=== PATIENT | female | born 1995 | race Asian ===

== ENCOUNTER 2016-09-22 11:20 | Inpatient (IN) | payer SELFPAY ==
[~2016-09-22] VITALS: Ht 157.5 cm; Wt 59.9 kg
[2016-09-22] VITALS (7 sets, daily range): BP systolic 95–132; BP diastolic 49–82
[~2016-09-22 11:20] MED LIST: HYDR-971 PO; IBUP-1060 PO; NAPR500T PO; OXYC-323 PO
[2016-09-22] MEDS ORDERED: OXYTOCIN 30 UNIT/500 ML PREMIX 500 ML IV PRN ×2 (11:45→13:45)
[2016-09-22] MEDS ORDERED: BUTORPHANOL 2 MG/ML VIAL. IV PRN (11:45)
[2016-09-22] MEDS ORDERED: 0.9 % SODIUM CHLORIDE 10 ML DISP.SYRIN. IV PRN ×2 (11:45→13:45)
[2016-09-22] MEDS ORDERED: TERBUTALINE 1 MG/ML VIAL. SQ PRN (11:45)
[2016-09-22] MEDS ORDERED: LIDOCAINE 1% PF 30 ML VIAL. INJ PRN (11:45)
[2016-09-22] MEDS ORDERED: fentaNYL PF VIAL 100 MCG/2 ML VIAL IV PRN (11:45)
[2016-09-22] MEDS ORDERED: IV NORMAL SALINE 1000ML BAG 1,000 ML IV SCH (12:26)
[2016-09-22] MEDS ORDERED: SUCCINYLCHOLINE 200 MG/10 ML VIAL. ONE (12:30)
[2016-09-22] MEDS ORDERED: PROPOFOL 20 ML IV ONE (12:31)
[2016-09-22 12:42] LABS: HEMATOCRIT 25.5 % (36.0-47.0); HEMOGLOBIN 8.2 g/dL (12.0-15.5); RED BLOOD COUNT 3.82 x10^6/uL (3.50-5.40); RED CELL DISTRIBUTION WIDTH 16.5 % (11.5-14.5); WHITE BLOOD COUNT 7.6 x10^3/uL (4.0-11.0)
[2016-09-22] MEDS ORDERED: OXYTOCIN 10 UNIT/ML VIAL. ONE ×2 (12:42→13:08)
[2016-09-22] MEDS ORDERED: ONDANSETRON PF 4 MG/2 ML VIAL. ONE (12:43)
[2016-09-22] MEDS ORDERED: fentaNYL PF VIAL 100 MCG/2 ML VIAL ONE ×2 (12:44→13:03)
[2016-09-22] MEDS ORDERED: METHYLERGONOVINE MALEATE 0.2 MG/ML VIAL. IM ONE ×2 (12:48→13:00)
[2016-09-22] MEDS ORDERED: miSOPROStol 200MCG TAB 200 MCG TABLET ONE ×2 (12:48→13:00)
--- NOTE | 2016-09-22 13:06 | RAD ---
Indication low heart tones. Obstetrical ultrasound examination was performed. A full survey was not performed. No prior ultrasound imaging is available associated with this .Dr. Carrillo was present during the examination and aware of the results of the exam. There is a single viable intrauterine fetus. heart rate of 108 is documented. The placenta is predominantly right lateral. The biparietal diameter of 9.8 cm, head circumference of 34 cm, abdominal circumference of 28.4 cm and femoral length of 6.2 cm are compatible with a gestational age of approximately 31 weeks 6 days. Estimated weight was approximately 2200 g. A full survey was not performed however hydrocephalus was seen during the examination. abdominal ascites was also noted during the exam. The amount of amniotic fluid appeared normal. There was a 4 chambered heart. IMPRESSION: Single viable intrauterine fetus of approximately 32 weeks gestation. hydrocephalus and abdominal ascites
--- NOTE | 2016-09-22 13:27 | PDOC1 ---
OB - History Hx of Present Care: None Ultrasounds: No ultrasounds Abnormal Ultrasound Findings: Today's sono: EGA 35 wks Hydrocephalus Edema around abdomen FHT's 108 Obstetrical Complications: Other ( anomalies) Medical Complications: None Past Family/Social History * Past Medical, Surgical, Family and Obstetric Histories reviewed from chart. Blood Type: Unknown Rubella: Unknown RPR/VDRL: Unknown GBS Status: Unknown HBsAG: Unknown OB - Chief Complaint & HPI Date of Admission: Date of Admission: Sep 22, 2016 at 11:20 Chief Complaint/History : 2 Para: 1 EGA: 29 Reason for admission: other ( bradycardia in clinic) Admission Nurse Assessment Rev: Yes Problems: OB - Admission Exam Physical Exam HEENT: Normal Heart: Regular Rate Lungs: Clear, Equal Abdomen: Gravid, Non tender, Soft Extremities: Edema Reflexes: Normal Cervical Dilatation: None Effacement: 25% Station: Ballotable Membranes: Intact Heart Rate: Bradycardia Accelerations: No Accelerations Decelerations: No decelerations Contractions on Admission: None Text A: 35 wks IUP by today's sono Bradycardia anomalies involving head, abd and brain P: Admit for emergency repeat c/s. RAJEEV MARIE Jr, MD Sep 22, 2016 13:27
--- NOTE | 2016-09-22 13:33 | PDOC4 ---
OB Operative Note PRE OP DIAGNOSIS: Other (Previous c/s and bradycardia) POST OP DIAGNOSIS: Other (Same) OPERATION PERFORMED: R [facility] Surgeon Dr. Carrillo Anesthesia: Gen Blood Loss 1000 ml Specimen placenta and OB Findings: Position (Vertex), Sex, (0/0), Weight, Fluid (Clear) Complications Additional Remarks pt. RJAEEV Ayon Jr, MD Sep 22, 2016 13:33
[2016-09-22] MEDS ORDERED: ONDANSETRON PF 4 MG/2 ML VIAL. IV PRN (13:45)
[2016-09-22] MEDS ORDERED: KETOROLAC TROMETHAMINE 30 MG/ML INJ. IV PRN (13:45)
[2016-09-22] MEDS ORDERED: ZOLPIDEM 5 MG TABLET. PO PRN (13:45)
[2016-09-22] MEDS ORDERED: SIMETHICONE 80 MG TAB.CHEW PO PRN (13:45)
[2016-09-22] MEDS ORDERED: MAG HYDROX/ALUMINUM HYD/SIMETH 30 ML ORAL.SUSP PO PRN (13:45)
[2016-09-22] MEDS ORDERED: diphenhydrAMINE ORAL ELIXIR 12.5 MG/5 ML ML PO PRN (13:45)
[2016-09-22] MEDS: IV RINGERS,LACTATED 1000ML 1,000 ML IV SCH (19:26)
[2016-09-23] VITALS (13 sets, daily range): BP systolic 91–107; BP diastolic 48–78
[2016-09-23] MEDS: IV RINGERS,LACTATED 1000ML 1,000 ML IV SCH (02:24)
[2016-09-23 05:35] LABS: BASO % 0 % (0-3); EOS % 1 % (0-3); LYMPH # 1.3 x10^3/uL (1.0-4.8); LYMPH % 12 % (24-48); MEAN CORPUSCULAR HEMOGLOBIN 21 pg (25-35); MEAN CORPUSCULAR HGB CONC 32 g/dL (31-37); MEAN CORPUSCULAR VOLUME 66 fL (79-100); MONO % 8 % (0-9); NEUT % 80 % (31-73); PLATELET COUNT 255 x10^3/uL (140-400); RED BLOOD COUNT 2.72 x10^6/uL (3.50-5.40); RED CELL DISTRIBUTION WIDTH 16.3 % (11.5-14.5)
[2016-09-23 05:53] LABS: HEMOGLOBIN 5.8 g/dL (12.0-15.5)
[2016-09-23 07:28] LABS: RPR REFLEX Non Reactive (Non Reactive)
--- NOTE | 2016-09-23 07:43 | OP ---
DATE OF SURGERY: PREOPERATIVE DIAGNOSES: 1. A 35-week gestation. 2. bradycardia. 3. anomalies involving head, brain, abdomen. POSTOPERATIVE DIAGNOSES: 1. A 35-week gestation. 2. bradycardia. 3. anomalies involving head, brain, abdomen. PROCEDURE: Repeat low transverse section. SURGEON: Rajeev Carrillo MD ANESTHESIA: GETA. ESTIMATED BLOOD LOSS: 1000 mL. COMPLICATIONS: ____. SUMMARY: A 20-year-old 2, para 1, presented from [facility] due to bradycardia. Upon arrival to the unit, she continued to have bradycardia. This was then confirmed with ultrasound. Ultrasound also revealed a 35-week gestation with hydrocephalus, ____, fluid on abdomen and confirming the bradycardia. This was the patient's only sonogram during the and we then proceeded emergent section. DESCRIPTION OF PROCEDURE: The patient was taken to surgery suite and placed in dorsal supine position. She was prepped with ChloraPrep and draped in a sterile fashion. After adequate anesthesia, a Pfannenstiel skin incision made with scalpel down to the fascia. Fascia was extended laterally using curved Salas scissors and superior fascia edge of the fascia was grasped with two Tania clamps and dissected free of the abdominal rectus muscles using blunt dissection along with Bovie cautery. Same process took place inferiorly. The abdominal rectus was then dissected bluntly at the midline along with the peritoneum. Juan Luis ring retractor was placed. Low transverse hysterotomy incision was made with scalpel down to the amniotic sac. Hysterotomy incision was extended laterally and superiorly digitally. With the aid of fundal pressure, the 's head was delivered in smooth atraumatic manner. With additional fundal pressure, the anterior shoulder was delivered followed by posterior and rest of the was delivered. was suctioned with bulb syringe orally and nasally, umbilical cord was clamped twice and cut. was then handed to the staff for resuscitation efforts. Three-vessel cord placenta was delivered manually. The uterus exteriorized, cleared of clot and debris with a moist lap. The hysterotomy incision was reapproximated using 1-0 Vicryl suture in running locked fashion and imbricated layer of 1-0 Vicryl suture was performed. 800 mcg Cytotec was placed intrauterine for better hemostasis. The uterus then palpated firm, fallopian tubes and ovaries appeared normal bilaterally. Posterior cul-de-sac was cleared of clot and debris with a moist lap. The uterus then returned to the abdomen. Pericolic gutters were cleared of clot and debris with a moist lap. Interceed was placed over the hysterotomy incision in an inverted T fashion. The Juan Luis ring retractor was removed. The peritoneum was reapproximated using 1-0 Vicryl suture in running fashion. Fascia was reapproximated using 0 Vicryl suture in a running fashion. Skin was reapproximated using 4-0 Vicryl suture in subcuticular manner. The patient tolerated the procedure well and was taken to recovery in stable condition; resuscitation of the infant was then performed as well. RAJEEV CARRILLO MD DR: SCARLET/leighton JOB#: [id number] / [id number]
[2016-09-23] MEDS: oxyCODONE/APAP 5/325 1 TAB TABLET PO PRN ×2 (10:15→20:02)
[2016-09-23] MEDS: FERROUS SULFATE 325 MG TABLET. PO SCH (10:15)
[2016-09-23] MEDS: DOCUSATE SODIUM 100 MG CAPSULE. PO PRN (10:15)
[2016-09-23] MEDS ORDERED: diphenhydrAMINE HCL 25 MG CAPSULE PO PRN (13:00)
[2016-09-23 13:40] LABS: ANISOCYTOSIS SLIGHT; HYPOCHROMIA MOD; MICROCYTOSIS MARKED; PLT ESTIMATE ADEQUATE (ADEQUATE); POLYCHROMASIA SLIGHT
[2016-09-23 17:56] LABS: BASO # 0.1 x10^3/uL (0.0-0.2); BASO % 1 % (0-3); EOS % 2 % (0-3); HEMATOCRIT 25.7 % (36.0-47.0); HEMOGLOBIN 8.4 g/dL (12.0-15.5); LYMPH # 1.8 x10^3/uL (1.0-4.8); LYMPH % 12 % (24-48); MEAN CORPUSCULAR HEMOGLOBIN 24 pg (25-35); MEAN CORPUSCULAR HGB CONC 33 g/dL (31-37); MEAN CORPUSCULAR VOLUME 72 fL (79-100); MONO % 7 % (0-9); NEUT % 79 % (31-73); PLATELET COUNT 255 x10^3/uL (140-400); RED BLOOD COUNT 3.58 x10^6/uL (3.50-5.40); RED CELL DISTRIBUTION WIDTH 20.9 % (11.5-14.5); WHITE BLOOD COUNT 14.8 x10^3/uL (4.0-11.0)
--- NOTE | 2016-09-23 18:01 | PDOC ---
OB Progress Note Date of Service 09/23/16 Time of Evaluation 1800 Notes PT. feeling better after blood transfusion. SHe denies VANESSA, CP, SOB or abd pain. Lab Laboratory Tests Test 09/22/16 12:00 09/22/16 15:55 09/23/16 04:15 White Blood Count 7.6 x10^3/uL (4.0-11.0) 11.0 x10^3/uL (4.0-11.0) Red Blood Count 3.82 x10^6/uL (3.50-5.40) 2.72 x10^6/uL (3.50-5.40) Hemoglobin 8.2 g/dL (12.0-15.5) 5.8 g/dL (12.0-15.5) Hematocrit 25.5 % (36.0-47.0) 18.0 % (36.0-47.0) Mean Corpuscular Volume 67 fL (79-100) 66 fL (79-100) Mean Corpuscular Hemoglobin 22 pg (25-35) 21 pg (25-35) Mean Corpuscular Hemoglobin Concent 32 g/dL (31-37) 32 g/dL (31-37) Red Cell Distribution Width 16.5 % (11.5-14.5) 16.3 % (11.5-14.5) Platelet Count 322 x10^3/uL (140-400) 255 x10^3/uL (140-400) RPR Titer Additional Testing Non reactive (Non Reactive) Kleihauer-Betke Stain 0.0000 RATIO Neutrophils (%) (Auto) 80 % (31-73) Lymphocytes (%) (Auto) 12 % (24-48) Monocytes (%) (Auto) 8 % (0-9) Eosinophils (%) (Auto) 1 % (0-3) Basophils (%) (Auto) 0 % (0-3) Neutrophils # (Auto) 8.7 x10^3uL (1.8-7.7) Lymphocytes # (Auto) 1.3 x10^3/uL (1.0-4.8) Monocytes # (Auto) 0.8 x10^3/uL (0.0-1.1) Eosinophils # (Auto) 0.1 x10^3/uL (0.0-0.7) Basophils # (Auto) 0.0 x10^3/uL (0.0-0.2) Platelet Estimate Adequate (ADEQUATE) Polychromasia Slight Hypochromasia Mod Anisocytosis Slight Microcytosis Marked Laboratory Tests Test 09/23/16 04:15 White Blood Count 11.0 x10^3/uL (4.0-11.0) Red Blood Count 2.72 x10^6/uL (3.50-5.40) Hemoglobin 5.8 g/dL (12.0-15.5) Hematocrit 18.0 % (36.0-47.0) Mean Corpuscular Volume 66 fL (79-100) Mean Corpuscular Hemoglobin 21 pg (25-35) Mean Corpuscular Hemoglobin Concent 32 g/dL (31-37) Red Cell Distribution Width 16.3 % (11.5-14.5) Platelet Count 255 x10^3/uL (140-400) Neutrophils (%) (Auto) 80 % (31-73) Lymphocytes (%) (Auto) 12 % (24-48) Monocytes (%) (Auto) 8 % (0-9) Eosinophils (%) (Auto) 1 % (0-3) Basophils (%) (Auto) 0 % (0-3) Neutrophils # (Auto) 8.7 x10^3uL (1.8-7.7) Lymphocytes # (Auto) 1.3 x10^3/uL (1.0-4.8) Monocytes # (Auto) 0.8 x10^3/uL (0.0-1.1) Eosinophils # (Auto) 0.1 x10^3/uL (0.0-0.7) Basophils # (Auto) 0.0 x10^3/uL (0.0-0.2) Platelet Estimate Adequate (ADEQUATE) Polychromasia Slight Hypochromasia Mod Anisocytosis Slight Microcytosis Marked Medications Current Medications Sodium Chloride (Normal Saline Flush) 3 ml QSHIFT PRN IV AFTER MEDS AND BLOOD DRAWS; Start 09/22/16 at 11:45; Stop 09/23/16 at 07:05; Status DC Ringer's Solution 1,000 ml @ 125 mls/hr Q8H IV Last administered on 09/23/16t 02:24; Start 09/22/16 at 12:00 Butorphanol Tartrate (Stadol) 2 mg PRN Q1HR PRN IV Severe labor pain; Start 12/29 at 11:45; Stop 09/23/16 at 07:05; Status DC Fentanyl Citrate (Fentanyl 2ml Vial) 100 mcg PRN Q30MIN PRN IV Severe pain; Start 09/22/16 at 11:45 Terbutaline Sulfate (Brethine) 0.25 mg 1X PRN PRN SQ SEE COMMENTS; Start at 11:45; Stop 09/23/16 at 07:05; Status DC Lidocaine HCl 30 ml 1X PRN PRN INJ SEE COMMENTS; Start 09/22/16 at 11:45; Stop 09/23/16 at 07:05; Status DC Oxytocin/Sodium Chloride 500 ml @ 0 mls/hr CONT PRN PRN IV Post delivery bleeding; Start 09/22/16 at 11:45 Sodium Chloride 1,000 ml @ 1,000 mls/hr Q1H IV ; Start 09/22/16 at 12:26; Stop 09/22/16 at 13:25; Status DC Cefazolin Sodium/ Dextrose 50 ml @ 100 mls/hr 1X ONCE IV ; Start 09/22/16 at 13:00; Stop 09/23/16 at 07:05; Status DC Succinylcholine Chloride (Anectine) 200 mg STK-MED ONCE .ROUTE ; Start 09/22/16 at 12:30; Stop 09/23/16 at 07:05; Status DC Propofol 20 ml @ As Directed STK-MED ONCE IV ; Start 09/22/16 at 12:31; Stop 01/28 at 07:05; Status DC Oxytocin (Pitocin) 10 unit STK-MED ONCE .ROUTE ; Start 09/22/16 at 12:42; Stop 09/22/16 at 12:43; Status DC Ondansetron HCl (Zofran) 4 mg STK-MED ONCE .ROUTE ; Start 09/22/16 at 12:43; Stop 09/23/16 at 07:05; Status DC Misoprostol (Cytotec 200mcg Tab) 200 mcg STK-MED ONCE .ROUTE ; Start 09/22/16 at 12:48; Stop 09/23/16 at 07:05; Status DC Fentanyl Citrate (Fentanyl 2ml Vial) 100 mcg STK-MED ONCE .ROUTE ; Start at 12:44; Stop 09/23/16 at 07:05; Status DC Methylergonovine Maleate (Methergine) 0.2 mg STK-MED ONCE IM ; Start 09/22/16 at 12:48; Stop 09/22/16 at 12:49; Status DC Ephedrine Sulfate (Akovaz) 50 mg STK-MED ONCE .ROUTE ; Start 09/22/16 at 12:54; Stop 09/23/16 at 07:05; Status DC Fentanyl Citrate (Fentanyl 2ml Vial) 100 mcg STK-MED ONCE .ROUTE ; Start at 13:03; Stop 09/23/16 at 07:05; Status DC Oxytocin (Pitocin) 10 unit STK-MED ONCE .ROUTE ; Start 09/22/16 at 13:08; Stop 09/23/16 at 07:05; Status DC Sodium Chloride (Normal Saline Flush) 3 ml QSHIFT PRN IV AFTER MEDS AND BLOOD DRAWS; Start 09/22/16 at 13:45; Stop 09/23/16 at 07:05; Status DC Oxytocin/Sodium Chloride 500 ml @ 125 mls/hr CONT PRN IV EXCESSIVE POST- BLEEDING; Start 09/22/16 at 13:45; Stop 09/22/16 at 21:44; Status DC Ibuprofen (Motrin) 800 mg PRN Q8HRS PRN PO INFLAMMATION; Start 09/22/16 at 13: 45 Ondansetron HCl (Zofran) 4 mg PRN Q6HRS PRN IV NAUSEA/VOMITING; Start 09/22/16 at 13:45 Docusate Sodium (Colace) 100 mg PRN BID PRN PO CONSTIPATION Last administered on 09/23/16t 10:15; Start 09/22/16 at 13:45 Al Hydroxide/Mg Hydroxide (Mylanta Plus Xs) 30 ml PRN Q4HRS PRN PO HEARTBURN / GAS; Start 09/22/16 at 13:45 Simethicone (Gas-X) 80 mg PRN AFTMEALHC PRN PO GAS / BLOATING; Start 09/22/16 at 13:45 Diphenhydramine HCl (Benadryl Oral Elixir) 12.5 mg PRN Q6HRS PRN PO ITCHING Last administered on 09/23/16 12:51; Start 09/22/16 at 13:45 Ferrous Sulfate (Feosol) 325 mg BIDWMEALS PO Last administered on 09/23/16 10: 15; Start 09/22/16 at 17:00 Zolpidem Tartrate (Ambien) 5 mg PRN QHS PRN PO INSOMNIA, MAY REPEAT X1; Start 09/22/16 at 13:45 Oxycodone/ Acetaminophen (Percocet 5/325) 2 tab PRN Q4HRS PRN PO MODERATE PAIN , SEVERE PAIN Last administered on 09/23/16 10:15; Start 09/22/16 at 13:45 Ketorolac Tromethamine (Toradol) 30 mg PRN Q6HRS PRN IV PAIN Last administered on 09/22/16 14:55; Start 09/22/16 at 13:45; Stop 09/27/16 at 13:44 Hydromorphone HCl 30 ml @ 0 mls/hr CONT PRN PRN IV PROTOCOL Last administered on 09/22/16 14:53; Start 09/22/16 at 13:45 Diphenhydramine HCl (Benadryl) 25 mg PRN Q6HRS PRN PO ITCHING Last administered on 09/23/16 13:06; Start 09/23/16 at 13:00 Active Scripts Active Naprosyn (Naproxen) 500 Mg Tablet 500 Mg PO BID [place] 5-325 Tablet (Acetaminophen/Hydrocodone Bitart) 1 Each Tablet 1 Tab PO PRN Q6HRS PRN Percocet 5-325 Mg Tablet (Oxycodone/Acetaminophen) 1 Each Tablet 1-2 Tab PO Q4- 6HRS Ibuprofen 800 Mg Tablet 800 Mg PO Q6H PRN Exam Abd: soft, mild tenderness, fundus firm Bandage in place and dry. Assessment POD#1 s/p repeat c/s Plan of Care: Continue current Tx, RAJEEV Carreon Jr, MD Sep 23, 2016 18:01
[2016-09-23] MEDS: IBUPROFEN 800 MG TABLET. PO PRN (20:02)
[2016-09-24] MEDS: IBUPROFEN 800 MG TABLET. PO PRN (06:22)
[2016-09-24] MEDS: oxyCODONE/APAP 5/325 1 TAB TABLET PO PRN (06:23)
[2016-09-24 06:28] VITALS: BP 86/49
[2016-09-24] MEDS: DOCUSATE SODIUM 100 MG CAPSULE. PO PRN (08:06)
[2016-09-24] MEDS: FERROUS SULFATE 325 MG TABLET. PO SCH (08:06)
--- NOTE | 2016-09-24 09:03 | PDOC ---
OB Progress Note Date of Service 09/24/16 Time of Evaluation 0900 Notes PT. feeling well. No complaints. Lab Laboratory Tests Test 09/22/16 12:00 09/22/16 15:55 09/23/16 04:15 09/23/16 17:45 White Blood Count 7.6 x10^3/uL (4.0-11.0) 11.0 x10^3/uL (4.0-11.0) 14.8 x10^3/uL (4.0-11.0) Red Blood Count 3.82 x10^6/uL (3.50-5.40) 2.72 x10^6/uL (3.50-5.40) 3.58 x10^6/uL (3.50-5.40) Hemoglobin 8.2 g/dL (12.0-15.5) 5.8 g/dL (12.0-15.5) 8.4 g/dL (12.0-15.5) Hematocrit 25.5 % (36.0-47.0) 18.0 % (36.0-47.0) 25.7 % (36.0-47.0) Mean Corpuscular Volume 67 fL (79-100) 66 fL (79-100) 72 fL (79-100) Mean Corpuscular Hemoglobin 22 pg (25-35) 21 pg (25-35) 24 pg (25-35) Mean Corpuscular Hemoglobin Concent 32 g/dL (31-37) 32 g/dL (31-37) 33 g/dL (31-37) Red Cell Distribution Width 16.5 % (11.5-14.5) 16.3 % (11.5-14.5) 20.9 % (11.5-14.5) Platelet Count 322 x10^3/uL (140-400) 255 x10^3/uL (140-400) 255 x10^3/uL (140-400) RPR Titer Additional Testing Non reactive (Non Reactive) Kleihauer-Betke Stain 0.0000 RATIO Neutrophils (%) (Auto) 80 % (31-73) 79 % (31-73) Lymphocytes (%) (Auto) 12 % (24-48) 12 % (24-48) Monocytes (%) (Auto) 8 % (0-9) 7 % (0-9) Eosinophils (%) (Auto) 1 % (0-3) 2 % (0-3) Basophils (%) (Auto) 0 % (0-3) 1 % (0-3) Neutrophils # (Auto) 8.7 x10^3uL (1.8-7.7) 11.7 x10^3uL (1.8-7.7) Lymphocytes # (Auto) 1.3 x10^3/uL (1.0-4.8) 1.8 x10^3/uL (1.0-4.8) Monocytes # (Auto) 0.8 x10^3/uL (0.0-1.1) 1.0 x10^3/uL (0.0-1.1) Eosinophils # (Auto) 0.1 x10^3/uL (0.0-0.7) 0.2 x10^3/uL (0.0-0.7) Basophils # (Auto) 0.0 x10^3/uL (0.0-0.2) 0.1 x10^3/uL (0.0-0.2) Platelet Estimate Adequate (ADEQUATE) Polychromasia Slight Hypochromasia Mod Anisocytosis Slight Microcytosis Marked Laboratory Tests Test 09/23/16 17:45 White Blood Count 14.8 x10^3/uL (4.0-11.0) Red Blood Count 3.58 x10^6/uL (3.50-5.40) Hemoglobin 8.4 g/dL (12.0-15.5) Hematocrit 25.7 % (36.0-47.0) Mean Corpuscular Volume 72 fL (79-100) Mean Corpuscular Hemoglobin 24 pg (25-35) Mean Corpuscular Hemoglobin Concent 33 g/dL (31-37) Red Cell Distribution Width 20.9 % (11.5-14.5) Platelet Count 255 x10^3/uL (140-400) Neutrophils (%) (Auto) 79 % (31-73) Lymphocytes (%) (Auto) 12 % (24-48) Monocytes (%) (Auto) 7 % (0-9) Eosinophils (%) (Auto) 2 % (0-3) Basophils (%) (Auto) 1 % (0-3) Neutrophils # (Auto) 11.7 x10^3uL (1.8-7.7) Lymphocytes # (Auto) 1.8 x10^3/uL (1.0-4.8) Monocytes # (Auto) 1.0 x10^3/uL (0.0-1.1) Eosinophils # (Auto) 0.2 x10^3/uL (0.0-0.7) Basophils # (Auto) 0.1 x10^3/uL (0.0-0.2) Medications Current Medications Sodium Chloride (Normal Saline Flush) 3 ml QSHIFT PRN IV AFTER MEDS AND BLOOD DRAWS; Start 09/22/16 at 11:45; Stop 09/23/16 at 07:05; Status DC Ringer's Solution 1,000 ml @ 125 mls/hr Q8H IV Last administered on 09/23/16t 02:24; Start 09/22/16 at 12:00 Butorphanol Tartrate (Stadol) 2 mg PRN Q1HR PRN IV Severe labor pain; Start 12/29 at 11:45; Stop 09/23/16 at 07:05; Status DC Fentanyl Citrate (Fentanyl 2ml Vial) 100 mcg PRN Q30MIN PRN IV Severe pain; Start 09/22/16 at 11:45 Terbutaline Sulfate (Brethine) 0.25 mg 1X PRN PRN SQ SEE COMMENTS; Start at 11:45; Stop 09/23/16 at 07:05; Status DC Lidocaine HCl 30 ml 1X PRN PRN INJ SEE COMMENTS; Start 09/22/16 at 11:45; Stop 09/23/16 at 07:05; Status DC Oxytocin/Sodium Chloride 500 ml @ 0 mls/hr CONT PRN PRN IV Post delivery bleeding; Start 09/22/16 at 11:45 Sodium Chloride 1,000 ml @ 1,000 mls/hr Q1H IV ; Start 09/22/16 at 12:26; Stop 09/22/16 at 13:25; Status DC Cefazolin Sodium/ Dextrose 50 ml @ 100 mls/hr 1X ONCE IV ; Start 09/22/16 at 13:00; Stop 09/23/16 at 07:05; Status DC Succinylcholine Chloride (Anectine) 200 mg STK-MED ONCE .ROUTE ; Start 09/22/16 at 12:30; Stop 09/23/16 at 07:05; Status DC Propofol 20 ml @ As Directed STK-MED ONCE IV ; Start 09/22/16 at 12:31; Stop 01/28 at 07:05; Status DC Oxytocin (Pitocin) 10 unit STK-MED ONCE .ROUTE ; Start 09/22/16 at 12:42; Stop 09/22/16 at 12:43; Status DC Ondansetron HCl (Zofran) 4 mg STK-MED ONCE .ROUTE ; Start 09/22/16 at 12:43; Stop 09/23/16 at 07:05; Status DC Misoprostol (Cytotec 200mcg Tab) 200 mcg STK-MED ONCE .ROUTE ; Start 09/22/16 at 12:48; Stop 09/23/16 at 07:05; Status DC Fentanyl Citrate (Fentanyl 2ml Vial) 100 mcg STK-MED ONCE .ROUTE ; Start at 12:44; Stop 09/23/16 at 07:05; Status DC Methylergonovine Maleate (Methergine) 0.2 mg STK-MED ONCE IM ; Start 09/22/16 at 12:48; Stop 09/22/16 at 12:49; Status DC Ephedrine Sulfate (Akovaz) 50 mg STK-MED ONCE .ROUTE ; Start 09/22/16 at 12:54; Stop 09/23/16 at 07:05; Status DC Fentanyl Citrate (Fentanyl 2ml Vial) 100 mcg STK-MED ONCE .ROUTE ; Start at 13:03; Stop 09/23/16 at 07:05; Status DC Oxytocin (Pitocin) 10 unit STK-MED ONCE .ROUTE ; Start 09/22/16 at 13:08; Stop 09/23/16 at 07:05; Status DC Sodium Chloride (Normal Saline Flush) 3 ml QSHIFT PRN IV AFTER MEDS AND BLOOD DRAWS; Start 09/22/16 at 13:45; Stop 09/23/16 at 07:05; Status DC Oxytocin/Sodium Chloride 500 ml @ 125 mls/hr CONT PRN IV EXCESSIVE POST- BLEEDING; Start 09/22/16 at 13:45; Stop 09/22/16 at 21:44; Status DC Ibuprofen (Motrin) 800 mg PRN Q8HRS PRN PO INFLAMMATION Last administered on 06:22; Start 09/22/16 at 13:45 Ondansetron HCl (Zofran) 4 mg PRN Q6HRS PRN IV NAUSEA/VOMITING; Start 09/22/16 at 13:45 Docusate Sodium (Colace) 100 mg PRN BID PRN PO CONSTIPATION Last administered on 09/24/16 08:06; Start 09/22/16 at 13:45 Al Hydroxide/Mg Hydroxide (Mylanta Plus Xs) 30 ml PRN Q4HRS PRN PO HEARTBURN / GAS; Start 09/22/16 at 13:45 Simethicone (Gas-X) 80 mg PRN AFTMEALHC PRN PO GAS / BLOATING; Start 09/22/16 at 13:45 Diphenhydramine HCl (Benadryl Oral Elixir) 12.5 mg PRN Q6HRS PRN PO ITCHING Last administered on 09/23/16 12:51; Start 09/22/16 at 13:45 Ferrous Sulfate (Feosol) 325 mg BIDWMEALS PO Last administered on 09/24/16 08: 06; Start 09/22/16 at 17:00 Zolpidem Tartrate (Ambien) 5 mg PRN QHS PRN PO INSOMNIA, MAY REPEAT X1; Start 09/22/16 at 13:45 Oxycodone/ Acetaminophen (Percocet 5/325) 2 tab PRN Q4HRS PRN PO MODERATE PAIN , SEVERE PAIN Last administered on 09/24/16 06:23; Start 09/22/16 at 13:45 Ketorolac Tromethamine (Toradol) 30 mg PRN Q6HRS PRN IV PAIN Last administered on 09/22/16 14:55; Start 09/22/16 at 13:45; Stop 09/27/16 at 13:44 Hydromorphone HCl 30 ml @ 0 mls/hr CONT PRN PRN IV PROTOCOL Last administered on 09/22/16 14:53; Start 09/22/16 at 13:45 Diphenhydramine HCl (Benadryl) 25 mg PRN Q6HRS PRN PO ITCHING Last administered on 8/12/17at 13:06; Start 09/23/16 at 13:00 Active Scripts Active Naprosyn (Naproxen) 500 Mg Tablet 500 Mg PO BID [place] 5-325 Tablet (Acetaminophen/Hydrocodone Bitart) 1 Each Tablet 1 Tab PO PRN Q6HRS PRN Percocet 5-325 Mg Tablet (Oxycodone/Acetaminophen) 1 Each Tablet 1-2 Tab PO Q4- 6HRS Ibuprofen 800 Mg Tablet 800 Mg PO Q6H PRN Exam Abd; soft, non tender, fundus firm INcision site: clean, dry and intact Assessment POD#2 s/p repeat c/s Plan of Care: See new orders (D/c home.) RAJEEV MARIE Jr, MD Sep 24, 2016 09:03
--- NOTE | 2016-09-24 09:03 | DISCH ---
DISCHARGE INSTRUCTIONS Condition on Discharge Condition on Discharge: Stable Activity After Discharge Activity Instructions for Disc: Activity as tolerated Lifting Instructions after Dis: No heavy lifting Driving Instructions after Dis: Do not drive today Diet after Discharge Diet after Discharge: Regular Contacting the DRNixon after DC Call your doctor for: Concerns you may have Follow-Up Follow up with: Paulino in 1 week. RAJEEV MARIE Jr, MD Sep 24, 2016 09:03
[2016-09-24] MEDS ORDERED: DOCU-109 PO (09:05)
[2016-09-24] MEDS ORDERED: OXYC-323 PO (09:05)
[2016-09-24] MEDS ORDERED: IBUP-1060 PO (09:05)
[2016-09-24 11:43] VITALS: BP 98/62
== END 2016-09-24 11:46 | disposition home or self-care (01) | DRG 765 ==
LOC: 3 SO LND 11:20 → OBSVTOIN 11:20 → 3 SO LND 13:00 → 3 NORTH 16:30
PROVIDERS: ADMIT Obstetrics & Gynecology; ATTEND Obstetrics & Gynecology
PROC: 10D00Z1 Extraction of Products of Conception, Low, Open Approach (ICD-10-PCS; principal; 2016-09-22)
DX: O76 Abnormality in fetal heart rate and rhythm complicating labor and delivery (principal); O99.354 Diseases of the nervous system complicating childbirth; G91.9 Hydrocephalus, unspecified; O34.211 Maternal care for low transverse scar from previous cesarean delivery; O35.9XX0 Maternal care for (suspected) fetal abnormality and damage, unspecified, not applicable or unspecified; Z37.0 Single live birth; Z3A.35 35 weeks gestation of pregnancy
CPT/HCPCS: 36415; 76805; 85025; 85027; 85460; 86593; 86850; 86900; 86901; 86902; 86922; G0378; J0330; J1170; J1885; J2210; J2405; J2590; J2704; J3010; J7120; P9016; Q0163

== ENCOUNTER 2017-09-25 05:26 | Inpatient (IN) | payer SELFPAY ==
[2017-09-25] VITALS (7 sets, daily range): BP systolic 95–122; BP diastolic 48–70
[~2017-09-25] VITALS: Ht 154.9 cm; Wt 64.9 kg
[~2017-09-25 05:26] MED LIST changes: +DOCU-109 PO; +NAPR-683 PO; -NAPR500T PO
[2017-09-25] MEDS ORDERED: OXYTOCIN 30 UNIT/500 ML PREMIX 500 ML IV PRN ×2 (05:45→08:00)
[2017-09-25] MEDS ORDERED: 0.9 % SODIUM CHLORIDE 10 ML DISP.SYRIN. IV PRN ×2 (05:45→08:00)
[2017-09-25] MEDS ORDERED: TERBUTALINE 1 MG/ML VIAL. SQ PRN (05:45)
[2017-09-25] MEDS ORDERED: CITRIC ACID/SODIUM CITRATE 30 ML SOLUTION. PO ONE (05:45)
[2017-09-25 06:24] LABS: BARBITURATES NEG (NEG); BENZODIAZEPINES NEG (NEG); BILIRUBIN,URINE NEGATIVE (NEG); CANNABINOIDS NEG (NEG); CLARITY,URINE CLEAR; COCAINE NEG (NEG); COLOR,URINE YELLOW; METHADONE NEG (NEG); NITRITE,URINE NEGATIVE (NEG); OPIATES NEG (NEG); PH,URINE 6.5; PHENCYCLIDINE NEG (NEG); PROTEIN,URINE NEGATIVE (NEG-TRACE); UROBILINOGEN,URINE 0.2 mg/dL (0.2 mg/dL)
[2017-09-25] MEDS: IV RINGERS,LACTATED 1000ML 1,000 ML IV SCH ×3 (06:26→21:19)
[2017-09-25 06:27] LABS: AMPHETAMINE/METHAMPHETAMINE NEG (NEG)
[2017-09-25 06:41] LABS: BACTERIA,URINE FEW /HPF (0-FEW); RBC,URINE OCC /HPF (0-2); SQUAMOUS EPITHELIAL CELL,UR FEW /LPF; WBC,URINE OCC /HPF (0-4)
[2017-09-25] MEDS ORDERED: FAMOTIDINE 20 MG/2 ML VIAL ONE (07:13)
[2017-09-25] MEDS ORDERED: fentaNYL PF VIAL 100 MCG/2 ML VIAL ONE (07:13)
[2017-09-25] MEDS ORDERED: MORPHINE PF 5 MG/10 ML VIAL. ONE (07:13)
[2017-09-25] MEDS ORDERED: ONDANSETRON PF 4 MG/2 ML VIAL. ONE (07:13)
[2017-09-25] MEDS ORDERED: OXYTOCIN 10 UNIT/ML VIAL. ONE ×2 (07:13→08:35)
[2017-09-25] MEDS ORDERED: PHENYLEPHRINE in 0.9% NACL PF 1 MG/10 ML SYRINGE. IV ONE (07:16)
[2017-09-25 07:23] LABS: BASO # 0.1 x10^3/uL (0.0-0.2); BASO % 1 % (0-3); EOS # 0.2 x10^3/uL (0.0-0.7); EOS % 3 % (0-3); HEMATOCRIT 29.4 % (36.0-47.0); HEMOGLOBIN 9.3 g/dL (12.0-15.5); LYMPH # 1.6 x10^3/uL (1.0-4.8); LYMPH % 23 % (24-48); MEAN CORPUSCULAR HEMOGLOBIN 22 pg (25-35); MEAN CORPUSCULAR HGB CONC 32 g/dL (31-37); MEAN CORPUSCULAR VOLUME 70 fL (79-100); MONO # 0.4 x10^3/uL (0.0-1.1); MONO % 6 % (0-9); NEUT # 4.6 x10^3uL (1.8-7.7); NEUT % 67 % (31-73); PLATELET COUNT 277 x10^3/uL (140-400); RED BLOOD COUNT 4.19 x10^6/uL (3.50-5.40); RED CELL DISTRIBUTION WIDTH 17.8 % (11.5-14.5); WHITE BLOOD COUNT 6.9 x10^3/uL (4.0-11.0)
[2017-09-25] MEDS ORDERED: SUCCINYLCHOLINE 200 MG/10 ML VIAL. ONE (07:29)
[2017-09-25] MEDS ORDERED: MAGNESIUM HYDROXIDE 2,400 MG/30 ML ORAL.SUSP. PO PRN (08:00)
[2017-09-25] MEDS ORDERED: MMR per PROTOCOL. MC PRN (08:00)
[2017-09-25] MEDS ORDERED: ZOLPIDEM 5 MG TABLET. PO PRN (08:00)
[2017-09-25] MEDS ORDERED: MAG HYDROX/ALUMINUM HYD/SIMETH 30 ML ORAL.SUSP PO PRN (08:00)
[2017-09-25] MEDS ORDERED: diphenhydrAMINE ORAL ELIXIR 12.5 MG/5 ML ML PO PRN (08:00)
[2017-09-25] MEDS ORDERED: ONDANSETRON PF 4 MG/2 ML VIAL. IV PRN (08:00)
--- NOTE | 2017-09-25 08:00 | PDOC1 ---
OB - History Hx of Present Care: Good Care Ultrasounds: Normal mid trimester US Obstetrical Complications: None Medical Complications: None Past Family/Social History * Past Medical, Surgical, Family and Obstetric Histories reviewed from chart. Blood Type: O+ Rubella: Immune RPR/VDRL: Negative GBS Status: Positive HBsAG: Negative OB - Chief Complaint & HPI Date of Admission: Date of Admission: Sep 25, 2017 at 05:26 Chief Complaint/History : 5 Para: 1 EDC: Oct 09, 2017 Reason for admission: induction of labor Indication for induction: other (H/O IUFD) Admission Nurse Assessment Rev: Yes OB - Admission Exam Physical Exam Vitals: VS - Last 72 Hours, by Label Date Time Temp Pulse Resp B/P (MAP) Pulse Ox O2 Delivery O2 Flow Rate FiO2 09/25/17 06:24 99.1 86 18 122/63 (82) 98 Room Air 99.1 HEENT: Normal, Nasal Mucosa Normal, Oropharynx Normal, Moist Membranes, Fontanelles Normal Heart: Regular Rate Lungs: Clear, Equal Abdomen: Gravid Extremities: Normal Pulses, No tenderness or swelling Reflexes: Normal Cervical Dilatation: None Effacement: 25% Membranes: Intact Heart Rate: Normal Accelerations: No Accelerations Decelerations: No decelerations Contractions on Admission: >10 Minutes Apart Intensity: Mild Assessment/Plan Assessment/Plan TIUP H/O IUFD TALHA/DICK GERMAN MD Sep 25, 2017 08:00
--- NOTE | 2017-09-25 08:48 | PDOC ---
BRIEF OPERATIVE NOTE Date: Sep 25, 2017 Pre-Op Diagnosis TIUP Previous IUFD Post-Op Diagnosis Same Procedure Performed RLTC/S Surgeon Miki Anesthesia Type: Regional Blood Loss 700cc Findings Male 7#6oz Complications None DICK WADDELL MD Sep 25, 2017 08:48
[2017-09-25 12:01] LABS: ANISOCYTOSIS SLIGHT; HYPOCHROMIA MOD; MICROCYTOSIS MOD; PLT ESTIMATE ADEQUATE (ADEQUATE)
[2017-09-25] MEDS ORDERED: ceFAZolin SODIUM 1 GM in IV DEXTROSE 5% 50 ML IV SCH (14:00)
[2017-09-25] MEDS: ceFAZolin SODIUM IV Push 1 GM VIAL. IVP SCH ×2 (16:04→23:26)
[2017-09-25] MEDS: KETOROLAC 30 MG/ML VIAL. IV PRN (17:46)
[2017-09-25] MEDS: IBUPROFEN 800 MG TABLET. PO SCH (22:00)
[2017-09-26] VITALS (12 sets, daily range): BP systolic 89–110; BP diastolic 42–69
[2017-09-26] MEDS: IV RINGERS,LACTATED 1000ML 1,000 ML IV SCH ×3 (05:49→19:21)
[2017-09-26] MEDS: KETOROLAC 30 MG/ML VIAL. IV PRN (05:49)
[2017-09-26] MEDS: IBUPROFEN 800 MG TABLET. PO SCH ×3 (06:00→22:00)
[2017-09-26] MEDS ORDERED: IV RINGERS,LACTATED 500ML 500 ML IV ONE (07:30)
[2017-09-26] MEDS: FERROUS SULFATE 325 MG TABLET. PO SCH ×4 (08:00→17:19)
[2017-09-26 08:01] LABS: BASO % 0 % (0-3); EOS # 0.1 x10^3/uL (0.0-0.7); EOS % 1 % (0-3); HEMATOCRIT 21.3 % (36.0-47.0); LYMPH % 13 % (24-48); MEAN CORPUSCULAR HEMOGLOBIN 23 pg (25-35); MEAN CORPUSCULAR HGB CONC 32 g/dL (31-37); MEAN CORPUSCULAR VOLUME 70 fL (79-100); MONO # 0.5 x10^3/uL (0.0-1.1); MONO % 6 % (0-9); NEUT # 6.1 x10^3uL (1.8-7.7); NEUT % 80 % (31-73); PLATELET COUNT 208 x10^3/uL (140-400); RED BLOOD COUNT 3.03 x10^6/uL (3.50-5.40); RED CELL DISTRIBUTION WIDTH 17.6 % (11.5-14.5); WHITE BLOOD COUNT 7.6 x10^3/uL (4.0-11.0)
--- NOTE | 2017-09-26 08:28 | PDOC ---
OB Progress Note Date of Service 09/26/17 Time of Evaluation 0825 Notes Pt. feeling well. Pain controlled. No complaints. Lab Laboratory Tests Test 09/25/17 06:10 09/25/17 07:15 Urine Collection Type Unknown Urine Color Yellow Urine Clarity Clear Urine pH 6.5 Urine Specific [place] 1.010 Urine Protein Negative mg/dL (NEG-TRACE) Urine Glucose (UA) Negative mg/dL (NEG) Urine Ketones (Stick) Negative mg/dL (NEG) Urine Blood Negative (NEG) Urine Nitrite Negative (NEG) Urine Bilirubin Negative (NEG) Urine Urobilinogen Dipstick 0.2 mg/dL (0.2 mg/dL) Urine Leukocyte Esterase Trace (NEG) Urine RBC Occ /HPF (0-2) Urine WBC Occ /HPF (0-4) Urine Squamous Epithelial Cells Few /LPF Urine Bacteria Few /HPF (0-FEW) Urine Opiates Screen Neg (NEG) Urine Methadone Screen Neg (NEG) Urine Barbiturates Neg (NEG) Urine Phencyclidine Screen Neg (NEG) Urine Amphetamine/Methamphetamine Neg (NEG) Urine Benzodiazepines Screen Neg (NEG) Urine Cocaine Screen Neg (NEG) Urine Cannabinoids Screen Neg (NEG) Urine Ethyl Alcohol Neg (NEG) White Blood Count 6.9 x10^3/uL (4.0-11.0) Red Blood Count 4.19 x10^6/uL (3.50-5.40) Hemoglobin 9.3 g/dL (12.0-15.5) Hematocrit 29.4 % (36.0-47.0) Mean Corpuscular Volume 70 fL (79-100) Mean Corpuscular Hemoglobin 22 pg (25-35) Mean Corpuscular Hemoglobin Concent 32 g/dL (31-37) Red Cell Distribution Width 17.8 % (11.5-14.5) Platelet Count 277 x10^3/uL (140-400) Neutrophils (%) (Auto) 67 % (31-73) Lymphocytes (%) (Auto) 23 % (24-48) Monocytes (%) (Auto) 6 % (0-9) Eosinophils (%) (Auto) 3 % (0-3) Basophils (%) (Auto) 1 % (0-3) Neutrophils # (Auto) 4.6 x10^3uL (1.8-7.7) Lymphocytes # (Auto) 1.6 x10^3/uL (1.0-4.8) Monocytes # (Auto) 0.4 x10^3/uL (0.0-1.1) Eosinophils # (Auto) 0.2 x10^3/uL (0.0-0.7) Basophils # (Auto) 0.1 x10^3/uL (0.0-0.2) Platelet Estimate Adequate (ADEQUATE) Hypochromasia Mod Anisocytosis Slight Microcytosis Mod Treponema pallidum Antibody Nonreactive (Nonreactive) Medications Current Medications Sodium Chloride (Normal Saline Flush) 3 ml QSHIFT PRN IV AFTER MEDS AND BLOOD DRAWS; Start 09/25/17 at 05:45 Ringer's Solution 1,000 ml @ 150 mls/hr Q6H40M IV Last administered on at 05:49; Start 09/25/17 at 05:45 Terbutaline Sulfate (Brethine) 0.25 mg 1X PRN PRN SQ SEE COMMENTS; Start at 05:45; Stop 09/25/17 at 18:00; Status DC Oxytocin/Sodium Chloride 500 ml @ 0 mls/hr CONT PRN PRN IV Post delivery bleeding; Start 09/25/17 at 05:45; Stop 09/25/17 at 17:59; Status DC Cefazolin Sodium/ Dextrose 50 ml @ 100 mls/hr 1X ONCE IV ; Start 09/25/17 at 05:45; Stop 09/25/17 at 18:01; Status DC Citric Acid/ Sodium Citrate (Bicitra) 30 ml 1X ONCE PO ; Start 09/25/17 at 05: 45; Stop 09/25/17 at 18:01; Status DC Ketorolac Tromethamine (Toradol 30mg Vial) 30 mg PRN Q6HRS PRN IV PAIN Last administered on 09/26/17at 05:49; Start 09/25/17 at 07:00; Stop 09/30/17 at 06:59 Famotidine (Pepcid Vial) 20 mg STK-MED ONCE .ROUTE ; Start 09/25/17 at 07:13; Stop 09/25/17 at 18:01; Status DC Ondansetron HCl (Zofran) 4 mg STK-MED ONCE .ROUTE ; Start 09/25/17 at 07:13; Stop 09/25/17 at 18:01; Status DC Oxytocin (Pitocin) 10 unit STK-MED ONCE .ROUTE ; Start 09/25/17 at 07:13; Stop 09/25/17 at 18:01; Status DC Morphine Sulfate (Morphine Preservative Free) 5 mg STK-MED ONCE .ROUTE ; Start 09/25/17 at 07:13; Stop 09/25/17 at 18:01; Status DC Fentanyl Citrate (Fentanyl 2ml Vial) 100 mcg STK-MED ONCE .ROUTE ; Start at 07:13; Stop 09/25/17 at 17:59; Status DC Phenylephrine HCl (PHENYLEPHRINE in 0.9% NACL PF) 1 mg STK-MED ONCE IV ; Start 09/25/17 at 07:16; Stop 09/25/17 at 18:00; Status DC Succinylcholine Chloride (Anectine) 200 mg STK-MED ONCE .ROUTE ; Start 09/25/17 at 07:29; Stop 09/25/17 at 18:00; Status DC Sodium Chloride (Normal Saline Flush) 3 ml QSHIFT PRN IV AFTER MEDS AND BLOOD DRAWS; Start 09/25/17 at 08:00; Stop 09/25/17 at 12:59; Status DC Oxytocin/Sodium Chloride 500 ml @ 125 mls/hr CONT PRN IV EXCESSIVE POST- BLEEDING; Start 09/25/17 at 08:00; Stop 09/25/17 at 15:59; Status DC Ibuprofen (Motrin) 800 mg Q8HRS PO ; Start 09/25/17 at 14:00 Ondansetron HCl (Zofran) 4 mg PRN Q6HRS PRN IV NAUSEA/VOMITING Last administered on 09/25/17at 16:15; Start 09/25/17 at 08:00 Docusate Sodium (Colace) 100 mg PRN BID PRN PO HARD STOOLS; Start 09/25/17 at 08:00 Magnesium Hydroxide (Milk Of Magnesia) 2,400 mg PRN DAILY PRN PO CONSTIPATION; Start 09/25/17 at 08:00 Al Hydroxide/Mg Hydroxide (Mylanta Plus Xs) 30 ml PRN Q4HRS PRN PO HEARTBURN / GAS; Start 09/25/17 at 08:00 Simethicone (Gas-X) 80 mg PRN AFTMEALHC PRN PO GAS / BLOATING; Start 09/25/17 at 08:00 Diphenhydramine HCl (Benadryl Oral Elixir) 12.5 mg PRN Q6HRS PRN PO ITCHING; Start 09/25/17 at 08:00 Ferrous Sulfate (Feosol) 325 mg BIDWMEALS PO ; Start 09/25/17 at 08:00 Zolpidem Tartrate (Ambien) 5 mg PRN QHS PRN PO INSOMNIA, MAY REPEAT X1; Start 09/25/17 at 08:00 Info (Do NOT chart on this placeholder) 1 ea PRN 1X PRN MC SEE COMMENTS; Start 09/25/17 at 08:00 Info (Do NOT chart on this placeholder) 1 ea PRN 1X PRN MC SEE COMMENTS; Start 09/25/17 at 08:00; Stop 09/25/17 at 17:59; Status DC Oxycodone/ Acetaminophen (Percocet 5/325) 1 tab PRN Q4HRS PRN PO MILD PAIN; Start 09/25/17 at 08:00 Oxycodone/ Acetaminophen (Percocet 5/325) 2 tab PRN Q4HRS PRN PO MODERATE PAIN , SEVERE PAIN; Start 09/25/17 at 08:00 Cefazolin Sodium 1 gm/Dextrose 50 ml @ 100 mls/hr Q8HRS IV ; Start 09/25/17 at 14:00; Stop 09/25/17 at 14:00; Status DC Ephedrine Sulfate (Akovaz) 50 mg STK-MED ONCE .ROUTE ; Start 09/25/17 at 08:35; Stop 09/25/17 at 17:59; Status DC Oxytocin (Pitocin) 10 unit STK-MED ONCE .ROUTE ; Start 09/25/17 at 08:35; Stop 09/25/17 at 17:59; Status DC Cefazolin Sodium (Ancef) 1 gm Q8H IVP Last administered on 09/25/17at 23:26; Start 09/25/17 at 16:00; Stop 09/26/17 at 08:01; Status DC Ringer's Solution 500 ml @ 500 mls/hr 1X ONCE IV Last administered on at 07:28; Start 09/26/17 at 07:30; Stop 09/26/17 at 08:29 Active Scripts Active Colace (Docusate Sodium) 100 Mg Capsule 100 Mg PO BID Percocet 5-325 Mg Tablet (Oxycodone/Acetaminophen) 1 Each Tablet 1 Tab PO PRN Q6HRS PRN Ibuprofen 800 Mg Tablet 800 Mg PO PRN Q6HRS PRN Naprosyn (Naproxen) 500 Mg Tablet 500 Mg PO BID [place] 5-325 Tablet (Acetaminophen/Hydrocodone Bitart) 1 Each Tablet 1 Tab PO PRN Q6HRS PRN Percocet 5-325 Mg Tablet (Oxycodone/Acetaminophen) 1 Each Tablet 1-2 Tab PO Q4- 6HRS Ibuprofen 800 Mg Tablet 800 Mg PO Q6H PRN Exam Abd: soft, mild tenderness, fundus firm Prevena wound vac in place and dry. Assessment POD#1 s/p repeat c/s Plan of Care: Continue current Tx, RAJEEV Carreon Jr, MD Sep 26, 2017 08:28
[2017-09-26] MEDS: SIMETHICONE 80 MG TAB.CHEW PO PRN ×2 (08:33→17:19)
[2017-09-26] MEDS: DOCUSATE SODIUM 100 MG CAPSULE. PO PRN (08:33)
[2017-09-26] MEDS: oxyCODONE/APAP 5/325 1 TAB TABLET PO PRN ×2 (08:34→17:19)
[2017-09-26] MEDS: ceFAZolin SODIUM IV Push 1 GM VIAL. IVP SCH (08:34)
[2017-09-26 08:42] LABS: HEMOGLOBIN 6.9 g/dL (12.0-15.5)
[2017-09-26 21:50] LABS: HEMATOCRIT 27.3 % (36.0-47.0); HEMOGLOBIN 8.9 g/dL (12.0-15.5)
[2017-09-27] MEDS: IV RINGERS,LACTATED 1000ML 1,000 ML IV SCH (02:01)
[2017-09-27] MEDS: IBUPROFEN 800 MG TABLET. PO SCH ×3 (03:34→21:21)
[2017-09-27 03:43] VITALS: BP 113/72
[2017-09-27] MEDS: FERROUS SULFATE 325 MG TABLET. PO SCH ×2 (08:10→17:00)
[2017-09-27] MEDS: DOCUSATE SODIUM 100 MG CAPSULE. PO PRN (08:10)
[2017-09-27] MEDS: oxyCODONE/APAP 5/325 1 TAB TABLET PO PRN ×2 (08:10→16:29)
--- NOTE | 2017-09-27 09:11 | PDOC ---
Provider Note Provider Note Doing well VSS Dressing CDI CCC Vital Sign - Last 24 Hours 09/26/17 09/26/17 09/26/17 09/26/17 09:30 12:00 12:18 13:00 Temp 98.1 98.0 98.1 98.1 98.0 98.1 Pulse 74 74 73 Resp 18 B/P (MAP) 89/42 99/59 95/55 O2 Delivery Room Air 09/26/17 09/26/17 09/26/17 09/26/17 14:00 15:25 15:39 16:26 Temp 98.0 98.5 97.7 98.0 98.0 98.5 97.7 98.0 Pulse 76 85 84 87 Resp 18 B/P (MAP) 89/54 92/52 91/53 98/59 09/26/17 09/26/17 09/26/17 09/26/17 17:19 17:39 21:00 21:00 Temp 97.9 98.4 97.9 98.4 Pulse 84 69 Resp 16 16 14 B/P (MAP) 99/62 110/69 (83) Pulse Ox 99 O2 Delivery Room Air Room Air Room Air 09/27/17 03:43 Temp 98.2 98.2 Pulse 77 Resp 16 B/P (MAP) 113/72 (86) Pulse Ox 97 O2 Delivery Room Air Intake and Output 09/26/17 09/26/17 09/27/17 15:00 23:00 07:00 Intake Total 280 ml 320 ml 600 ml Balance 280 ml 320 ml 600 ml CBC - BMP 09/26/17 21:40 DICK WADDELL MD Sep 27, 2017 09:11
[2017-09-27 16:43] VITALS: BP 113/67
[2017-09-27 22:00] VITALS: BP 102/48
[2017-09-28 04:15] VITALS: BP 110/62
[2017-09-28] MEDS: IBUPROFEN 800 MG TABLET. PO SCH ×2 (06:00→14:21)
[2017-09-28] MEDS: FERROUS SULFATE 325 MG TABLET. PO SCH (08:37)
[2017-09-28 12:07] VITALS: BP 121/73
--- NOTE | 2017-09-28 16:40 | PDOC3 ---
OB DISCHARGE SUMMARY DATE OF ADMISSION: 09/25/17 DATE OF DISCHARGE: 09/28/17 REASON FOR ADMISSION: section INTRAPARTUM PROCEDURES: : Low Cerv Trans DISCHARGE DIAGNOSIS: Term Delivered DISCHARGE INFORMATION: Activity (pelvic rest x 6 wks, no driving x 2 wks, and no lifting > 20 lbs. x 4 wks), Diet (regular), Instructions (F/u in 2 wks Paulino) , Discharge to (home) HOSPITAL COURSE term gestation delivered via repeat c/s CONDITION AT DISCHARGE stable RAJEEV MARIE Jr, MD Sep 28, 2017 16:40
[2017-09-28] MEDS ORDERED: NAPR-683 PO (16:43)
[2017-09-28] MEDS ORDERED: OXYC-323 PO (16:43)
[2017-09-28] MEDS ORDERED: DOCU-109 PO (16:43)
== END 2017-09-28 18:15 | disposition home or self-care (01) | DRG 766 ==
LOC: 3 SO LND 05:26 → 3 NORTH 11:59
PROVIDERS: ADMIT Specialist; ATTEND Specialist
PROC: 10D00Z1 Extraction of Products of Conception, Low, Open Approach (ICD-10-PCS; principal; 2017-09-25)
PROC: 30233N1 Transfusion of Nonautologous Red Blood Cells into Peripheral Vein, Percutaneous Approach (ICD-10-PCS; 2017-09-26)
DX: O34.211 Maternal care for low transverse scar from previous cesarean delivery (principal); Z37.0 Single live birth; Z3A.00 Weeks of gestation of pregnancy not specified
CPT/HCPCS: 36415; 80307; 81001; 85014; 85018; 85025; 86592; 86850; 86900; 86901; 86922; 87086; J0330; J0690; J1885; J2270; J2370; J2405; J2590; J3010; J7120; P9016; S0028; G0479

== ENCOUNTER 2020-08-13 15:28 | Observation (INO) | payer SELFPAY ==
[~2020-08-13] VITALS: Ht 157.5 cm; Wt 63.0 kg
[~2020-08-13 15:28] MED LIST changes: +HYDR-3164 PO; -HYDR-971 PO; -OXYC-323 PO; +OXYC1TAB15 PO
== END 2020-08-13 17:30 | disposition home or self-care (01) ==
LOC: 3 SO LND 15:28
PROVIDERS: ADMIT Obstetrics & Gynecology; ATTEND Obstetrics & Gynecology
DX: O26.893 Other specified pregnancy related conditions, third trimester (principal); R42 Dizziness and giddiness; R53.1 Weakness; Z3A.30 30 weeks gestation of pregnancy
CPT/HCPCS: 59025; G0378; G0379

== ENCOUNTER 2020-08-23 15:00 | Inpatient (IN) | payer SELFPAY ==
[~2020-08-23] VITALS: Ht 154.9 cm; Wt 65.0 kg
[2020-08-23 16:17] VITALS: BP 111/53
[2020-08-23] MEDS: IV RINGERS,LACTATED 1000ML 1,000 ML IV PRN ×4 (16:43→23:57)
[2020-08-23] MEDS: cefTRIAXone IV Push 1 GM VIAL. IVP SCH (16:44)
[2020-08-23 16:47] LABS: BASO % 0 % (0-3); EOS # 0.2 x10^3/uL (0.0-0.7); EOS % 2 % (0-3); HEMATOCRIT 27.7 % (36.0-47.0); HEMOGLOBIN 8.7 g/dL (12.0-15.5); LYMPH # 0.7 x10^3/uL (1.0-4.8); LYMPH % 6 % (24-48); MEAN CORPUSCULAR HEMOGLOBIN 22 pg (25-35); MEAN CORPUSCULAR HGB CONC 32 g/dL (31-37); MEAN CORPUSCULAR VOLUME 70 fL (79-100); MONO # 0.2 x10^3/uL (0.0-1.1); MONO % 1 % (0-9); NEUT # 10.7 x10^3/uL (1.8-7.7); NEUT % 91 % (31-73); PLATELET COUNT 385 x10^3/uL (140-400); RED BLOOD COUNT 3.99 x10^6/uL (3.50-5.40); RED CELL DISTRIBUTION WIDTH 17.3 % (11.5-14.5); WHITE BLOOD COUNT 11.7 x10^3/uL (4.0-11.0)
[2020-08-23 16:48] LABS: BILIRUBIN,URINE NEGATIVE (NEG); CLARITY,URINE CLOUDY; COLOR,URINE AMBER; NITRITE,URINE POSITIVE (NEG); PROTEIN,URINE 100 mg/dL (NEG-TRACE)
[2020-08-23] MEDS: ACETAMINOPHEN 500 MG TABLET PO PRN ×2 (16:56→23:37)
--- NOTE | 2020-08-23 16:58 | PDOC1 ---
[employer] H&P Date of Admission: Date of Admission: Aug 23, 2020 at 15:00 History of Present Illness: EDC: 10/19/20 LMP: 02/01/20 24y @ 31.6 by 30wk u/s presents to L&D with right flank pain. She states that the pain began last night. On presentation to L&D she was found to have a temperature of 101.1. The baby was also with tachycardia to the 200s. PMH: Denies PSH: C/S x3 Meds: PNV, DHA, Fe All: NKDA OBHx: # 1: spontaneous [id number]. # 2: Primary 07/28/2014. # 3 spontaneous 2015. # 4: c/section demise 09/19/2016. # 5: Repeat SH: no tob, no EtOH FH: noncontributory Past Surgical History: Medications: Meds: Current Medications Medications (Trade) Dose Ordered Sig/Deandre Route PRN Reason Start Time Stop Time Status Last Admin Dose Admin Ringer's Solution 1,000 ml @ 125 mls/hr Q8H PRN IV PER PROTOCOL 08/23/20 16:15 08/23/20 16:43 Ceftriaxone Sodium (Rocephin) 1 gm Q24H IVP 08/23/20 17:00 08/23/20 16:44 Acetaminophen (Tylenol) 1,000 mg PRN Q6HRS PRN PO PAIN 08/23/20 17:00 08/23/20 16:56 Allergies: Coded Allergies: No Known Drug Allergies (Unverified , 09/09/13) Physical Exam: PE: GENERAL: No apparent distress. Alert and oriented. HEENT: Head normocephalic, atraumatic. NECK: Supple LUNGS: Clear to auscultation. HEART: RRR, S1, S2 present, pulses intact ABDOMEN: Soft, positive bowel sounds. EXTREMITIES: No cyanosis or edema. NEUROLOGIC: Normal speech, normal tone PSYCHIATRIC: Normal affect, normal mood. SKIN: No ulceration. FHT: 210s no acels/occ variable decels/min LTV [place]: none SVE: 1/70/0 Labs: Laboratory Tests Test 08/23/20 16:35 White Blood Count 11.7 x10^3/uL (4.0-11.0) H Red Blood Count 3.99 x10^6/uL (3.50-5.40) Hemoglobin 8.7 g/dL (12.0-15.5) L Hematocrit 27.7 % (36.0-47.0) L Mean Corpuscular Volume 70 fL (79-100) L Mean Corpuscular Hemoglobin 22 pg (25-35) L Mean Corpuscular Hemoglobin Concent 32 g/dL (31-37) Red Cell Distribution Width 17.3 % (11.5-14.5) H Platelet Count 385 x10^3/uL (140-400) Neutrophils (%) (Auto) 91 % (31-73) H Lymphocytes (%) (Auto) 6 % (24-48) L Monocytes (%) (Auto) 1 % (0-9) Eosinophils (%) (Auto) 2 % (0-3) Basophils (%) (Auto) 0 % (0-3) Neutrophils # (Auto) 10.7 x10^3/uL (1.8-7.7) H Lymphocytes # (Auto) 0.7 x10^3/uL (1.0-4.8) L Monocytes # (Auto) 0.2 x10^3/uL (0.0-1.1) Eosinophils # (Auto) 0.2 x10^3/uL (0.0-0.7) Basophils # (Auto) 0.0 x10^3/uL (0.0-0.2) Platelet Estimate Pending Laboratory Tests 08/23/20 16:35 Laboratory Tests 08/23/20 16:35 Assessment & Plan: A/P 24y @ 31.6 by 30wk u/s admitted for suspected pyelonephritis 1.) Right pyelonephritis pt with right flank pain and fever. CBC, UA, and cx ordered. Will started Rocephin. Tylenol prn. 2.) Prev C/S x 3 3.) H/o demise 4.) Anemia Hgb 8.8 5.) Rub equiv 6.) Decline TDAP 7.) Kyle NI 8.) DPS 9.) Covid screen orderd 10.) Fetus cat II FHT, will see if improves after maternal condition improves 11.) GBS unk not in labor REBECCA MONTENEGRO MD Aug 23, 2020 16:58
[2020-08-23 17:12] LABS: WBC,URINE TNTC /HPF (0-4)
[2020-08-23 17:13] LABS: BACTERIA,URINE MANY /HPF (0-FEW)
[2020-08-23 19:26] LABS: % BANDS 8 % (0-9); % LYMPHS 4 % (24-48); % MONOS 1 % (0-10); % SEGS 87 % (35-66); PLT ESTIMATE ADEQUATE (ADEQUATE)
[2020-08-24] MEDS: IV RINGERS,LACTATED 1000ML 1,000 ML IV PRN ×3 (06:00→21:42)
[2020-08-24 07:23] LABS: BASO # 0.1 x10^3/uL (0.0-0.2); BASO % 0 % (0-3); EOS # 0.2 x10^3/uL (0.0-0.7); EOS % 2 % (0-3); HEMOGLOBIN 7.1 g/dL (12.0-15.5); LYMPH # 1.7 x10^3/uL (1.0-4.8); LYMPH % 13 % (24-48); MEAN CORPUSCULAR HEMOGLOBIN 22 pg (25-35); MEAN CORPUSCULAR HGB CONC 31 g/dL (31-37); MEAN CORPUSCULAR VOLUME 71 fL (79-100); MONO # 0.8 x10^3/uL (0.0-1.1); MONO % 6 % (0-9); NEUT # 10.1 x10^3/uL (1.8-7.7); NEUT % 78 % (31-73); PLATELET COUNT 319 x10^3/uL (140-400); RED BLOOD COUNT 3.25 x10^6/uL (3.50-5.40); RED CELL DISTRIBUTION WIDTH 17.2 % (11.5-14.5); WHITE BLOOD COUNT 12.9 x10^3/uL (4.0-11.0)
[2020-08-24 08:10] VITALS: BP 96/53
--- NOTE | 2020-08-24 10:20 | PDOC ---
JUNIOR ACCOUNT EXECUTIVE PROGRESS NOTE Date of Service: DATE: 08/24/20 TIME: 10:19 Subjective: Pt with improved pain control. Juliet PO. Voiding Objective: Vital Signs: Vital Signs Date Time Temp Pulse Resp B/P (MAP) Pulse Ox O2 Delivery O2 Flow Rate FiO2 08/23/20 16:17 101.1 142 20 111/53 (72) 97 101.1 Vital Signs Date Time Temp Pulse Resp B/P (MAP) Pulse Ox O2 Delivery O2 Flow Rate FiO2 08/24/20 08:10 97.8 72 20 96/53 (67) 97.8 08/23/20 16:17 97 Labs: Laboratory Tests Test 08/23/20 16:30 08/23/20 16:35 08/23/20 21:00 08/24/20 06:05 Urine Collection Type Unknown Urine Color Sophy Urine Clarity Cloudy Urine pH 6.0 (<5.0-8.0) Urine Specific [place] 1.015 (1.000-1.030) Urine Protein 100 mg/dL (NEG-TRACE) Urine Glucose (UA) Negative mg/dL (NEG) Urine Ketones (Stick) Negative mg/dL (NEG) Urine Blood Moderate (NEG) Urine Nitrite Positive (NEG) Urine Bilirubin Negative (NEG) Urine Urobilinogen Dipstick 2.0 mg/dL (0.2 mg/dL) Urine Leukocyte Esterase Large (NEG) Urine RBC 6-10 /HPF (0-2) Urine WBC Tntc /HPF (0-4) Urine Squamous Epithelial Cells Many /LPF Urine Bacteria Many /HPF (0-FEW) Urine Mucus Marked /LPF White Blood Count 11.7 x10^3/uL (4.0-11.0) H 12.9 x10^3/uL (4.0-11.0) H Red Blood Count 3.99 x10^6/uL (3.50-5.40) 3.25 x10^6/uL (3.50-5.40) L Hemoglobin 8.7 g/dL (12.0-15.5) L 7.1 g/dL (12.0-15.5) L Hematocrit 27.7 % (36.0-47.0) L 23.0 % (36.0-47.0) L Mean Corpuscular Volume 70 fL (79-100) L 71 fL (79-100) L Mean Corpuscular Hemoglobin 22 pg (25-35) L 22 pg (25-35) L Mean Corpuscular Hemoglobin Concent 32 g/dL (31-37) 31 g/dL (31-37) Red Cell Distribution Width 17.3 % (11.5-14.5) H 17.2 % (11.5-14.5) H Platelet Count 385 x10^3/uL (140-400) 319 x10^3/uL (140-400) Neutrophils (%) (Auto) 91 % (31-73) H 78 % (31-73) H Lymphocytes (%) (Auto) 6 % (24-48) L 13 % (24-48) L Monocytes (%) (Auto) 1 % (0-9) 6 % (0-9) Eosinophils (%) (Auto) 2 % (0-3) 2 % (0-3) Basophils (%) (Auto) 0 % (0-3) 0 % (0-3) Neutrophils # (Auto) 10.7 x10^3/uL (1.8-7.7) H 10.1 x10^3/uL (1.8-7.7) H Lymphocytes # (Auto) 0.7 x10^3/uL (1.0-4.8) L 1.7 x10^3/uL (1.0-4.8) Monocytes # (Auto) 0.2 x10^3/uL (0.0-1.1) 0.8 x10^3/uL (0.0-1.1) Eosinophils # (Auto) 0.2 x10^3/uL (0.0-0.7) 0.2 x10^3/uL (0.0-0.7) Basophils # (Auto) 0.0 x10^3/uL (0.0-0.2) 0.1 x10^3/uL (0.0-0.2) Segmented Neutrophils % 87 % (35-66) H Band Neutrophils % 8 % (0-9) Lymphocytes % 4 % (24-48) L Monocytes % 1 % (0-10) Platelet Estimate Adequate (ADEQUATE) SARS-CoV-2 Antigen (Rapid) Negative (NEGATIVE) Laboratory Tests 08/23/20 16:35 08/24/20 06:05 Laboratory Tests 08/24/20 06:05 Physical Exam: GENERAL: No apparent distress. Alert and oriented. HEENT: Head normocephalic, atraumatic. NECK: Supple LUNGS: Clear to auscultation. HEART: RRR, S1, S2 present, pulses intact ABDOMEN: Soft, positive bowel sounds. EXTREMITIES: No cyanosis or edema. NEUROLOGIC: Normal speech, normal tone PSYCHIATRIC: Normal affect, normal mood. SKIN: No ulceration. Assessment & Plan: A/P 24y @ 31.6 by 30wk u/s admitted for suspected pyelonephritis 1.) Right pyelonephritis right flank pain improved. Last fever 101.1 (08/23/20 at 1617). WBC 11.7 -> 12.9, improved left shift. Ucx pending. On Rocephin. Tylenol prn. 2.) Prev C/S x 3 3.) H/o demise 4.) Anemia Hgb 7.1, on Fe BID 5.) Rub equiv 6.) Decline TDAP 7.) Kyle NI 8.) DPS 9.) Covid screen neg 10.) Fetus cat I FHT 11.) GBS unk not in labor REBECCA MONTENEGRO MD Aug 24, 2020 10:20
[2020-08-24] MEDS: FERROUS SULFATE 325 MG TABLET. PO SCH ×2 (12:21→16:47)
[2020-08-24] MEDS: cefTRIAXone IV Push 1 GM VIAL. IVP SCH (16:51)
[2020-08-25] MEDS: ACETAMINOPHEN 500 MG TABLET PO PRN (01:02)
[2020-08-25] MEDS: IV RINGERS,LACTATED 1000ML 1,000 ML IV PRN (04:26)
[2020-08-25] MEDS: FERROUS SULFATE 325 MG TABLET. PO SCH (08:16)
[2020-08-25 08:28] LABS: BASO % 1 % (0-3); EOS # 0.2 x10^3/uL (0.0-0.7); EOS % 3 % (0-3); HEMATOCRIT 22.5 % (36.0-47.0); LYMPH # 1.8 x10^3/uL (1.0-4.8); LYMPH % 19 % (24-48); MEAN CORPUSCULAR HEMOGLOBIN 22 pg (25-35); MEAN CORPUSCULAR HGB CONC 31 g/dL (31-37); MEAN CORPUSCULAR VOLUME 71 fL (79-100); MONO # 0.8 x10^3/uL (0.0-1.1); MONO % 8 % (0-9); NEUT # 6.7 x10^3/uL (1.8-7.7); NEUT % 70 % (31-73); PLATELET COUNT 305 x10^3/uL (140-400); RED BLOOD COUNT 3.18 x10^6/uL (3.50-5.40); RED CELL DISTRIBUTION WIDTH 17.4 % (11.5-14.5); WHITE BLOOD COUNT 9.6 x10^3/uL (4.0-11.0)
[2020-08-25 08:37] LABS: CALCIUM 7.7 mg/dL (8.5-10.1); CREATININE 0.4 mg/dL (0.6-1.0); GFR 194.5
[2020-08-25 08:39] LABS: POTASSIUM 2.8 mmol/L (3.5-5.1)
--- NOTE | 2020-08-25 09:23 | PDOC ---
ANIMATION ARTIST PROGRESS NOTE Date of Service: DATE: 08/25/20 TIME: 09:23 Subjective: Pt feels better. Objective: Vital Signs: Vital Signs Date Time Temp Pulse Resp B/P (MAP) Pulse Ox O2 Delivery O2 Flow Rate FiO2 08/24/20 08:10 97.8 72 20 96/53 (67) 97.8 Vital Signs Date Time Temp Pulse Resp B/P (MAP) Pulse Ox O2 Delivery O2 Flow Rate FiO2 08/24/20 08:10 97.8 72 20 96/53 (67) 97.8 Labs: Laboratory Tests Test 08/25/20 07:55 White Blood Count 9.6 x10^3/uL (4.0-11.0) Red Blood Count 3.18 x10^6/uL (3.50-5.40) L Hemoglobin 7.0 g/dL (12.0-15.5) *L Hematocrit 22.5 % (36.0-47.0) L Mean Corpuscular Volume 71 fL (79-100) L Mean Corpuscular Hemoglobin 22 pg (25-35) L Mean Corpuscular Hemoglobin Concent 31 g/dL (31-37) Red Cell Distribution Width 17.4 % (11.5-14.5) H Platelet Count 305 x10^3/uL (140-400) Neutrophils (%) (Auto) 70 % (31-73) Lymphocytes (%) (Auto) 19 % (24-48) L Monocytes (%) (Auto) 8 % (0-9) Eosinophils (%) (Auto) 3 % (0-3) Basophils (%) (Auto) 1 % (0-3) Neutrophils # (Auto) 6.7 x10^3/uL (1.8-7.7) Lymphocytes # (Auto) 1.8 x10^3/uL (1.0-4.8) Monocytes # (Auto) 0.8 x10^3/uL (0.0-1.1) Eosinophils # (Auto) 0.2 x10^3/uL (0.0-0.7) Basophils # (Auto) 0.0 x10^3/uL (0.0-0.2) Sodium Level 142 mmol/L (136-145) Potassium Level 2.8 mmol/L (3.5-5.1) *L Chloride Level 108 mmol/L (98-107) H Carbon Dioxide Level 25 mmol/L (21-32) Anion Gap 9 (6-14) Blood Urea Nitrogen 6 mg/dL (7-20) L Creatinine 0.4 mg/dL (0.6-1.0) L Estimated GFR (Cockcroft-Gault) 194.5 Glucose Level 69 mg/dL (70-99) L Calcium Level 7.7 mg/dL (8.5-10.1) L Laboratory Tests 08/25/20 07:55 Laboratory Tests 08/25/20 07:55 Laboratory Tests 08/25/20 07:55 Physical Exam: GENERAL: No apparent distress. Alert and oriented. HEENT: Head normocephalic, atraumatic. NECK: Supple LUNGS: Clear to auscultation. HEART: RRR, S1, S2 present, pulses intact ABDOMEN: Soft, positive bowel sounds. EXTREMITIES: No cyanosis or edema. NEUROLOGIC: Normal speech, normal tone PSYCHIATRIC: Normal affect, normal mood. SKIN: No ulceration. Assessment & Plan: A/P 24y @ 32.1 by 30wk u/s admitted for suspected pyelonephritis 1.) Right pyelonephritis right flank pain resolved. Last fever 101.1 (08/23/20 at 1617). WBC 11.7 -> 12.9 -> 9.6, improved left shift. Ucx pending. On Rocephin. Tylenol prn. 2.) HypoK KCL 40 x 2, repeat BMP at 1600 3.) Prev C/S x 3 4.) H/o demise 5.) Anemia Hgb 7.0, on Fe BID 6.) Rub equiv 7.) Decline TDAP 8.) Kyle NI 9.) DPS 10.) Covid screen neg 11.) Fetus cat I FHT 12.) GBS unk not in labor REBECCA MONTENEGRO MD Aug 25, 2020 09:23
[2020-08-25] MEDS ORDERED: POTASSIUM CHLORIDE 20 MEQ TABLET.ER. PO SCH (09:30)
[2020-08-25] MEDS ORDERED: POTASSIUM CHLORIDE 20 MEQ TABLET.ER. PO ONE (10:00)
[2020-08-25] MEDS ORDERED: FERR325T14 PO (14:47)
[2020-08-25] MEDS ORDERED: CEPH500C PO (14:47)
[2020-08-25] MEDS ORDERED: DOCU-109 PO (14:51)
[2020-08-25] MEDS: cefTRIAXone IV Push 1 GM VIAL. IVP SCH (16:32)
[2020-08-25 17:26] LABS: CALCIUM 7.8 mg/dL (8.5-10.1); CREATININE 0.4 mg/dL (0.6-1.0); GFR 194.5; POTASSIUM 3.3 mmol/L (3.5-5.1)
--- NOTE | 2020-08-25 20:41 | DS ---
DATE OF DISCHARGE: 08/25/2020 ADMITTING DIAGNOSES: 1. Intrauterine at 31 weeks and 6 days by a 30-week ultrasound. 2. Right pyelonephritis. 3. Previous x 3. 4. History of demise. 5. Anemia. 6. Rubella equivocal. 7. Declined Tdap. 8. Varicella nonimmune. 9. Desires permanent sterilization. 10. GBS unknown. DISCHARGE DIAGNOSES: 1. Intrauterine at 31 weeks and 6 days by a 30-week ultrasound. 2. Right pyelonephritis. 3. Previous x 3. 4. History of demise. 5. Anemia. 6. Rubella equivocal. 7. Declined Tdap. 8. Varicella nonimmune. 9. Desires permanent sterilization. 10. GBS unknown. PROCEDURE: None. BRIEF HOSPITAL COURSE: The patient is a 24-year-old 6, para 2-1-2-2 who presented to labor and delivery at 31 weeks and 6 days by 30-week ultrasound with right flank pain. The patient reported that the pain began the night prior to admission. On labor and delivery, the patient was found to have a temperature of 101.1 and had tachycardia in the 200s. The patient had right CVA tenderness and was subsequently started on Rocephin, given Tylenol p.r.n. The patient remained afebrile throughout her hospital course and during her hospitalization, her white count went from 11.7-12.9 on hospital day #2, to 9.6 on hospital day #3. The patient was found to have a hemoglobin of 7.1, was started on iron b.i.d. The patient had previously been on iron, but reported that she was not taking it because it made her constipated. A urine culture was ordered and subsequently returned back with E. coli. The patient was switched to p.o. medication of Keflex prior to discharge. Once the patient remained afebrile and the heart tracing remained normal, the patient was subsequently discharged home. DISCHARGE INSTRUCTIONS: The patient was told not to lift anything greater than 20 pounds. CALL IF: The patient was to call if she had fevers, chills, nausea and vomiting, abdominal pain, or any additional questions or concerns. FOLLOWUP APPOINTMENT: The patient was to follow up for her hospital followup on 09/02/2020 at 2:40 p.m. at [facility]. DISCHARGE MEDICATIONS: The patient was given a prescription for Keflex 500 mg q.i.d. for 10 days, ferrous sulfate 325 mg, 60 pills and Colace 100 mg 30 pills. HAZEL/SALBADOR DR: Angie TID: [id number]
== END 2020-08-25 17:59 | disposition home or self-care (01) | DRG 832 ==
LOC: 3 SO LND 15:00 → OBSVTOIN 15:00
PROVIDERS: ADMIT Obstetrics & Gynecology; ATTEND Obstetrics & Gynecology
DX: O36.8330 Maternal care for abnormalities of the fetal heart rate or rhythm, third trimester, not applicable or unspecified (principal); O23.03 Infections of kidney in pregnancy, third trimester; Z3A.31 31 weeks gestation of pregnancy; D64.9 Anemia, unspecified; O99.013 Anemia complicating pregnancy, third trimester; Z20.822 Contact with and (suspected) exposure to COVID-19; T45.4X6A Underdosing of iron and its compounds, initial encounter; E87.6 Hypokalemia; O26.893 Other specified pregnancy related conditions, third trimester; Y92.89 Other specified places as the place of occurrence of the external cause
CPT/HCPCS: 36415; 80048; 81001; 85007; 85025; 86850; 86900; 86901; 87077; 87086; 87186; 87426; J0696; J7120; U0003; U0005; G0378

== ENCOUNTER 2020-09-11 14:01 | Observation (INO) | payer SELFPAY ==
[~2020-09-11 14:01] MED LIST changes: +CEPH500C PO; +FERR325T14 PO
[2020-09-11] MEDS: IV RINGERS,LACTATED 1000ML 1,000 ML IV PRN ×2 (15:24→20:30)
[2020-09-11 16:40] LABS: BILIRUBIN,URINE NEGATIVE (NEG); CLARITY,URINE CLEAR; COLOR,URINE YELLOW; NITRITE,URINE NEGATIVE (NEG); PROTEIN,URINE NEGATIVE (NEG-TRACE)
[2020-09-11 16:48] LABS: BACTERIA,URINE MANY /HPF (0-FEW)
[2020-09-11 16:49] LABS: RBC,URINE RARE /HPF (0-2)
--- NOTE | 2020-09-11 23:02 | RAD ---
Exam: Ultrasound OB limited. Biophysical profile Indication: Decreased movement Technique: Real-time grayscale and color Doppler images of the pelvis were obtained by the department patternmaker. Comparisons: None FINDINGS: Within the uterus is a single live intrauterine gestation with heart rate measured at 141 bpm. measurements as follows: BPD: 9.2 corresponding to 37 weeks 1 day Head circumference: 31.1 cm corresponding to 34 weeks 5 days Abdominal circumference: 31.0 cm corresponding to 35 weeks 0 days Femur length: 5.5 cm corresponding to 29 weeks 2 days Estimated weight: 4 lbs. 15 oz. Gestational age by ultrasound 34 weeks 0 days. ALBINA measured at 12.0 cm Biophysical profile: breathin motion: 2 tone: 2 ALBINA: 2 IMPRESSION: 1. Biophysical profile 09/19 2. Single live intrauterine gestation with measurements as described above. Electronically signed by: Carmen Jurado MD (09/11/2020 10:59 PM) JACKIE
--- NOTE | 2020-09-11 23:02 | RAD ---
Exam: Ultrasound OB limited. Biophysical profile Indication: Decreased movement Technique: Real-time grayscale and color Doppler images of the pelvis were obtained by the department utility bill collection clerk. Comparisons: None FINDINGS: Within the uterus is a single live intrauterine gestation with heart rate measured at 141 bpm. measurements as follows: BPD: 9.2 corresponding to 37 weeks 1 day Head circumference: 31.1 cm corresponding to 34 weeks 5 days Abdominal circumference: 31.0 cm corresponding to 35 weeks 0 days Femur length: 5.5 cm corresponding to 29 weeks 2 days Estimated weight: 4 lbs. 15 oz. Gestational age by ultrasound 34 weeks 0 days. ALBINA measured at 12.0 cm Biophysical profile: breathin motion: 2 tone: 2 ALBINA: 2 IMPRESSION: 1. Biophysical profile 09/19 2. Single live intrauterine gestation with measurements as described above. Electronically signed by: Carmen Jurado MD (09/11/2020 10:59 PM) JACKIE
== END 2020-09-11 21:26 | disposition home or self-care (01) ==
LOC: 3 SO LND 14:01
PROVIDERS: ADMIT Obstetrics & Gynecology; ATTEND Obstetrics & Gynecology
DX: O36.8130 Decreased fetal movements, third trimester, not applicable or unspecified (principal); Z3A.34 34 weeks gestation of pregnancy
CPT/HCPCS: 59025; 76815; 76819; 81001; 87086; 96360; 96361; G0378; G0379; J7120